=== PATIENT | female | born 1945 | race Caucasian/White ===

== ENCOUNTER 2016-12-23 08:21 | Outpatient (CLI) | payer MEDICARE | END 2016-12-23 08:22 | disposition home or self-care (01) | DX: I48.0 Paroxysmal atrial fibrillation (principal) ==

== ENCOUNTER 2017-01-21 08:00 | Outpatient (CLI) | payer MEDICARE | END 2017-01-21 08:01 | disposition home or self-care (01) | DX: I48.0 Paroxysmal atrial fibrillation (principal) ==

== ENCOUNTER 2017-02-18 08:22 | Outpatient (CLI) | payer MEDICARE | END 2017-02-18 08:23 | disposition home or self-care (01) | DX: I48.0 Paroxysmal atrial fibrillation (principal) ==

== ENCOUNTER 2017-03-18 10:16 | Outpatient (CLI) | payer MEDICARE | END 2017-03-18 10:17 | disposition home or self-care (01) | DX: I48.0 Paroxysmal atrial fibrillation (principal) ==

== ENCOUNTER 2017-04-15 10:21 | Outpatient (CLI) | payer MEDICARE | END 2017-04-15 10:22 | disposition home or self-care (01) | DX: I48.0 Paroxysmal atrial fibrillation (principal) ==

== ENCOUNTER 2017-05-13 10:02 | Outpatient (CLI) | payer MEDICARE | END 2017-05-13 10:03 | disposition home or self-care (01) | LOC: LAB.F 10:02 | PROVIDERS: ATTEND Internal Medicine Cardiovascular Disease | DX: I48.0 Paroxysmal atrial fibrillation (principal) | CPT/HCPCS: 85610 ==

== ENCOUNTER 2017-05-25 07:49 | Outpatient (CLI) | payer MEDICARE | END 2017-05-25 07:50 | disposition home or self-care (01) | LOC: LAB.F 07:49 | PROVIDERS: ATTEND Internal Medicine Cardiovascular Disease | DX: I48.0 Paroxysmal atrial fibrillation (principal) | CPT/HCPCS: 85610 ==

== ENCOUNTER 2017-05-28 08:05 | Outpatient (CLI) | payer MEDICARE | END 2017-05-28 08:06 | disposition home or self-care (01) | LOC: LAB.F 08:05 | PROVIDERS: ATTEND Internal Medicine Cardiovascular Disease | DX: I48.0 Paroxysmal atrial fibrillation (principal) | CPT/HCPCS: 85610 ==

== ENCOUNTER 2017-06-17 10:07 | Outpatient (CLI) | payer MEDICARE | END 2017-06-17 10:08 | disposition home or self-care (01) | LOC: LAB.F 10:07 | PROVIDERS: ATTEND Internal Medicine Cardiovascular Disease | DX: I48.0 Paroxysmal atrial fibrillation (principal) | CPT/HCPCS: 85610 ==

== ENCOUNTER 2017-07-22 08:12 | Outpatient (CLI) | payer MEDICARE | END 2017-07-22 08:13 | disposition home or self-care (01) | LOC: LAB.F 08:12 | PROVIDERS: ATTEND Internal Medicine Cardiovascular Disease | DX: I48.0 Paroxysmal atrial fibrillation (principal) | CPT/HCPCS: 85610 ==

== ENCOUNTER 2017-08-03 08:17 | Outpatient (CLI) | payer MEDICARE | END 2017-08-03 08:18 | disposition home or self-care (01) | LOC: LAB.F 08:17 | PROVIDERS: ATTEND Internal Medicine Cardiovascular Disease | DX: I48.0 Paroxysmal atrial fibrillation (principal) | CPT/HCPCS: 85610 ==

== ENCOUNTER 2017-08-17 08:26 | Outpatient (CLI) | payer MEDICARE | END 2017-08-17 08:27 | disposition home or self-care (01) | LOC: LAB.F 08:26 | PROVIDERS: ATTEND Internal Medicine Cardiovascular Disease | DX: I48.0 Paroxysmal atrial fibrillation (principal) | CPT/HCPCS: 85610 ==

== ENCOUNTER 2017-09-15 08:25 | Outpatient (CLI) | payer MEDICARE | END 2017-09-15 08:26 | disposition home or self-care (01) | LOC: LAB.F 08:25 | PROVIDERS: ATTEND Internal Medicine Cardiovascular Disease | DX: I48.0 Paroxysmal atrial fibrillation (principal) | CPT/HCPCS: 85610 ==

== ENCOUNTER 2017-09-29 08:17 | Outpatient (CLI) | payer MEDICARE | END 2017-09-29 08:18 | disposition home or self-care (01) | LOC: LAB.F 08:17 | PROVIDERS: ATTEND Internal Medicine Cardiovascular Disease | DX: I48.0 Paroxysmal atrial fibrillation (principal) | CPT/HCPCS: 85610 ==

== ENCOUNTER 2017-10-29 07:45 | Outpatient (CLI) | payer MEDICARE | END 2017-10-29 07:46 | disposition home or self-care (01) | LOC: LAB.F 07:45 | PROVIDERS: ATTEND Internal Medicine Cardiovascular Disease | DX: I48.0 Paroxysmal atrial fibrillation (principal) | CPT/HCPCS: 85610 ==

== ENCOUNTER 2017-11-01 07:23 | Outpatient (CLI) | payer MEDICARE | END 2017-11-01 07:24 | disposition home or self-care (01) | LOC: LAB.F 07:23 | PROVIDERS: ATTEND Internal Medicine Cardiovascular Disease | DX: I48.0 Paroxysmal atrial fibrillation (principal) | CPT/HCPCS: 85610 ==

== ENCOUNTER 2017-11-15 07:50 | Outpatient (CLI) | payer MEDICARE | END 2017-11-15 07:51 | disposition home or self-care (01) | LOC: LAB.F 07:50 | PROVIDERS: ATTEND Internal Medicine Cardiovascular Disease | DX: I48.0 Paroxysmal atrial fibrillation (principal) | CPT/HCPCS: 85610 ==

== ENCOUNTER 2017-11-30 08:22 | Outpatient (CLI) | payer MEDICARE | END 2017-11-30 08:23 | disposition home or self-care (01) | LOC: LAB.F 08:22 | PROVIDERS: ATTEND Internal Medicine Cardiovascular Disease | DX: I48.0 Paroxysmal atrial fibrillation (principal) | CPT/HCPCS: 85610 ==

== ENCOUNTER 2017-12-28 07:57 | Outpatient (CLI) | payer MEDICARE | END 2017-12-28 07:58 | disposition home or self-care (01) | LOC: LAB.F 07:57 | PROVIDERS: ATTEND Internal Medicine Cardiovascular Disease | DX: I48.0 Paroxysmal atrial fibrillation (principal) | CPT/HCPCS: 85610 ==

== ENCOUNTER 2018-01-12 10:28 | Outpatient (CLI) | payer MEDICARE | END 2018-01-12 10:29 | disposition home or self-care (01) | LOC: LAB.F 10:28 | PROVIDERS: ATTEND Internal Medicine Cardiovascular Disease | DX: I48.0 Paroxysmal atrial fibrillation (principal) | CPT/HCPCS: 85610 ==

== ENCOUNTER 2018-02-02 08:08 | Outpatient (CLI) | payer MEDICARE | END 2018-02-02 08:09 | disposition home or self-care (01) | LOC: LAB.F 08:08 | PROVIDERS: ATTEND Internal Medicine Cardiovascular Disease | DX: I48.0 Paroxysmal atrial fibrillation (principal) | CPT/HCPCS: 85610 ==

== ENCOUNTER 2018-03-04 08:40 | Outpatient (CLI) | payer MEDICARE | END 2018-03-04 08:41 | disposition home or self-care (01) | LOC: LAB.F 08:40 | PROVIDERS: ATTEND Internal Medicine | DX: I48.0 Paroxysmal atrial fibrillation (principal) | CPT/HCPCS: 85610 ==

== ENCOUNTER 2018-04-08 08:20 | Outpatient (CLI) | payer MEDICARE | END 2018-04-08 08:21 | disposition home or self-care (01) | LOC: LAB.F 08:20 | PROVIDERS: ATTEND Internal Medicine | DX: I48.0 Paroxysmal atrial fibrillation (principal) | CPT/HCPCS: 85610 ==

== ENCOUNTER 2018-05-13 10:52 | Outpatient (CLI) | payer MEDICARE | END 2018-05-13 10:53 | disposition home or self-care (01) | LOC: LAB.F 10:52 | PROVIDERS: ATTEND Internal Medicine | DX: I48.0 Paroxysmal atrial fibrillation (principal) | CPT/HCPCS: 85610 ==

== ENCOUNTER 2018-06-17 07:41 | Outpatient (CLI) | payer MEDICARE | END 2018-06-17 07:42 | disposition home or self-care (01) | LOC: LAB.F 07:41 | PROVIDERS: ATTEND Internal Medicine | DX: I48.0 Paroxysmal atrial fibrillation (principal) | CPT/HCPCS: 85610 ==

== ENCOUNTER 2018-07-25 08:10 | Outpatient (CLI) | payer MEDICARE | END 2018-07-25 08:11 | disposition home or self-care (01) | LOC: LAB.F 08:10 | PROVIDERS: ATTEND Internal Medicine | DX: I48.0 Paroxysmal atrial fibrillation (principal) | CPT/HCPCS: 85610 ==

== ENCOUNTER 2018-08-31 07:57 | Outpatient (CLI) | payer MEDICARE | END 2018-08-31 07:58 | disposition home or self-care (01) | LOC: LAB.F 07:57 | PROVIDERS: ATTEND Internal Medicine | DX: I48.0 Paroxysmal atrial fibrillation (principal) | CPT/HCPCS: 85610 ==

== ENCOUNTER 2018-10-04 13:53 | Outpatient (CLI) | payer MEDICARE | END 2018-10-04 13:54 | disposition home or self-care (01) | LOC: LAB.F 13:53 | PROVIDERS: ATTEND Internal Medicine | DX: I48.0 Paroxysmal atrial fibrillation (principal) | CPT/HCPCS: 85610 ==

== ENCOUNTER 2018-10-24 07:48 | Outpatient (CLI) | payer MEDICARE | END 2018-10-24 07:49 | disposition home or self-care (01) | LOC: LAB.F 07:48 | PROVIDERS: ATTEND Internal Medicine | DX: I48.0 Paroxysmal atrial fibrillation (principal) | CPT/HCPCS: 85610 ==

== ENCOUNTER 2018-11-14 08:02 | Outpatient (CLI) | payer MEDICARE | END 2018-11-14 08:03 | disposition home or self-care (01) | LOC: LAB.F 08:02 | PROVIDERS: ATTEND Internal Medicine | DX: I48.0 Paroxysmal atrial fibrillation (principal) | CPT/HCPCS: 85610 ==

== ENCOUNTER 2018-12-12 08:00 | Outpatient (CLI) | payer MEDICARE | END 2018-12-12 08:01 | disposition home or self-care (01) | LOC: LAB.F 08:00 | PROVIDERS: ATTEND Internal Medicine | DX: I48.0 Paroxysmal atrial fibrillation (principal) | CPT/HCPCS: 85610 ==

== ENCOUNTER 2019-01-16 08:10 | Outpatient (CLI) | payer MEDICARE | END 2019-01-16 08:11 | disposition home or self-care (01) | LOC: LAB.F 08:10 | PROVIDERS: ATTEND Internal Medicine | DX: I48.0 Paroxysmal atrial fibrillation (principal) | CPT/HCPCS: 85610 ==

== ENCOUNTER 2019-02-28 12:11 | Outpatient (CLI) | payer MEDICARE | END 2019-02-28 23:59 | disposition home or self-care (01) | LOC: LAB.F 12:11 | PROVIDERS: ATTEND Internal Medicine | DX: I48.0 Paroxysmal atrial fibrillation (principal) | CPT/HCPCS: 85610 ==

== ENCOUNTER 2019-04-11 08:08 | Outpatient (CLI) | payer MEDICARE | END 2019-04-11 08:09 | disposition home or self-care (01) | LOC: LAB.F 08:08 | PROVIDERS: ATTEND Internal Medicine | DX: I48.0 Paroxysmal atrial fibrillation (principal) | CPT/HCPCS: 85610 ==

== ENCOUNTER 2019-05-23 08:13 | Outpatient (CLI) | payer MEDICARE | END 2019-05-23 08:14 | disposition home or self-care (01) | LOC: LAB.F 08:13 | PROVIDERS: ATTEND Internal Medicine | DX: I48.0 Paroxysmal atrial fibrillation (principal) | CPT/HCPCS: 85610 ==

== ENCOUNTER 2019-07-04 08:13 | Outpatient (CLI) | payer MEDICARE | END 2019-07-04 08:14 | disposition home or self-care (01) | LOC: LAB.S 08:13 | PROVIDERS: ATTEND Internal Medicine | DX: I48.0 Paroxysmal atrial fibrillation (principal) | CPT/HCPCS: 85610 ==

== ENCOUNTER 2019-08-15 12:00 | Outpatient (CLI) | payer MEDICARE | END 2019-08-15 12:01 | disposition home or self-care (01) | LOC: LAB.S 12:00 | PROVIDERS: ATTEND Internal Medicine | DX: I48.0 Paroxysmal atrial fibrillation (principal) | CPT/HCPCS: 85610 ==

== ENCOUNTER 2019-09-26 10:26 | Outpatient (CLI) | payer MEDICARE | END 2019-09-26 10:27 | disposition home or self-care (01) | LOC: LAB.S 10:26 | PROVIDERS: ATTEND Internal Medicine | DX: I48.0 Paroxysmal atrial fibrillation (principal) | CPT/HCPCS: 85610 ==

== ENCOUNTER 2019-10-24 13:21 | Outpatient (CLI) | payer MEDICARE | END 2019-10-24 13:22 | disposition home or self-care (01) | LOC: LAB.S 13:21 | PROVIDERS: ATTEND Internal Medicine | DX: I48.0 Paroxysmal atrial fibrillation (principal) | CPT/HCPCS: 85610 ==

== ENCOUNTER 2019-12-06 10:28 | Outpatient (CLI) | payer MEDICARE | END 2019-12-06 10:29 | disposition home or self-care (01) | LOC: LAB.S 10:28 | PROVIDERS: ATTEND Internal Medicine | DX: I48.0 Paroxysmal atrial fibrillation (principal) | CPT/HCPCS: 85610 ==

== ENCOUNTER 2020-01-17 11:44 | Outpatient (CLI) | payer MEDICARE | END 2020-01-17 11:45 | disposition home or self-care (01) | LOC: LAB.S 11:44 | PROVIDERS: ATTEND Internal Medicine | DX: I48.0 Paroxysmal atrial fibrillation (principal) | CPT/HCPCS: 85610 ==

== ENCOUNTER 2020-03-06 12:52 | Outpatient (CLI) | payer MEDICARE | END 2020-03-06 12:53 | disposition home or self-care (01) | LOC: LAB 12:52 | PROVIDERS: ATTEND Internal Medicine | DX: I48.0 Paroxysmal atrial fibrillation (principal) | CPT/HCPCS: 85610 ==

== ENCOUNTER 2020-03-26 12:14 | Outpatient (CLI) | payer MEDICARE | END 2020-03-26 12:15 | disposition home or self-care (01) | LOC: LAB 12:14 | PROVIDERS: ATTEND Internal Medicine | DX: I48.0 Paroxysmal atrial fibrillation (principal) | CPT/HCPCS: 85610 ==

== ENCOUNTER 2020-05-13 11:07 | Outpatient (CLI) | payer MEDICARE | END 2020-05-13 11:08 | disposition home or self-care (01) | LOC: LAB.S 11:07 | PROVIDERS: ATTEND Internal Medicine | DX: I48.0 Paroxysmal atrial fibrillation (principal) | CPT/HCPCS: 85610 ==

== ENCOUNTER 2020-08-05 09:12 | Outpatient (CLI) | payer MEDICARE | END 2020-08-05 09:13 | disposition home or self-care (01) | LOC: LAB.S 09:12 | PROVIDERS: ATTEND Internal Medicine | DX: I48.0 Paroxysmal atrial fibrillation (principal) | CPT/HCPCS: 85610 ==

== ENCOUNTER 2020-09-17 11:27 | Outpatient (CLI) | payer MEDICARE | END 2020-09-17 11:28 | disposition home or self-care (01) | LOC: LAB.S 11:27 | PROVIDERS: ATTEND Internal Medicine | DX: I48.0 Paroxysmal atrial fibrillation (principal) | CPT/HCPCS: 85610 ==

== ENCOUNTER 2020-10-01 16:42 | Outpatient (CLI) | payer MEDICARE | END 2020-10-01 16:43 | disposition home or self-care (01) | LOC: COV 16:42 | PROVIDERS: ATTEND Family Medicine | DX: R06.02 Shortness of breath (principal); R53.83 Other fatigue; Z20.828 Contact with and (suspected) exposure to other viral communicable diseases ==

== ENCOUNTER 2020-10-03 19:04 | Emergency (ER) | payer MEDICARE ==
--- NOTE | 2020-10-03 19:23 | ED Physician Documentation ---
History of Present Illness - Stated complaint Stated Complaint: ABNORMAL LABS - Chief complaint Chief Complaint: General - History obtained from History obtained from: Patient - History of Present Illness Timing: How many weeks ago (4) Pain level max: 0 Pain level now: 0 Improved by: no ameliorating factors Worsened by: no exacerbating factors - Additonal information Additional information: patient was seen at walk-in clinic earlier today for dyspnea x 1 month; she describes the dyspnea as ongoing sensation "like I can't take a deep breath". Denies chest pain, denies leg swelling. has had mild, nonproductive cough occasionally over past 1-2 weeks. She had a cxr, ekg, and blood tests performed but was called this evening and told she had an elevated d-dimer and advised to come to ED for CT scan. patient is on warfarin for atrial fibrillation. Review of Systems Constitutional: denies: Fever, Chills, Sweats Cardiac: reports: Reviewed and negative Respiratory: reports: Dyspnea, Cough. denies: Hemoptysis, Wheezing GI: reports: Reviewed and negative Musculoskeletal: denies: Extremity swelling PD PAST MEDICAL HISTORY - Past Medical History Past Medical History: Yes Cardiovascular: Atrial fibrillation - Allergies Allergies/Adverse Reactions: Allergies Allergy/AdvReac Type Severity Reaction Status Date / Time MAGGIE Inhibitors AdvReac Respiratory Verified 10/03/20 19:20 - Living Situation Living Arrangement: reports: At home PD ED PE NORMAL - Vitals Vital signs reviewed: Yes - General General: Alert and oriented X 3, No acute distress, Well developed/nourished - Cardiac Cardiac: RRR, No murmur - Respiratory Respiratory: No respiratory distress, Clear bilaterally - Extremities Extremities: No edema Results - Vitals Vitals: Vital Signs - 24 hr 10/03/20 10/03/20 10/03/20 19:13 19:33 19:59 Temperature 36.4 C L Heart Rate 59 L 65 Respiratory 18 17 16 Rate Blood Pressure 169/54 H 153/60 H O2 Saturation 100 100 10/03/20 10/03/20 10/03/20 21:22 21:25 21:26 Temperature Heart Rate 64 Respiratory 16 17 17 Rate Blood Pressure O2 Saturation 100 10/03/20 21:52 Temperature Heart Rate Respiratory 16 Rate Blood Pressure O2 Saturation Oxygen O2 Source Room air - Labs Labs: Laboratory Tests 10/03/20 10/03/20 19:40 19:40 WBC 7.7 RBC 4.28 Hgb 13.3 Hct 40.1 MCV 93.7 MCH 31.1 H MCHC 33.2 RDW 13.8 Plt Count 165 MPV 10.9 H Neut # (Auto) 3.6 Lymph # (Auto) 3.3 Collin # (Auto) 0.5 Eos # (Auto) 0.3 Baso # (Auto) 0.0 Absolute Nucleated RBC 0.00 Nucleated RBC % 0.0 Sodium 143 Potassium 3.1 L Chloride 105 Carbon Dioxide 23 Anion Gap 15.0 H BUN 33 H Creatinine 1.4 H Estimated GFR (MDRD) 37 L Glucose 172 H Calcium 9.3 PD MEDICAL DECISION MAKING - ED course Complexity details: reviewed results, re-evaluated patient, considered differential, d/w patient ED course: IV established and CT angio chest ordered. Unfortunately, when saline was flushed through the IV (as patient was on CT table; saline was flushed to ensure patency of the IV), the saline infiltrated into the surrounding tissue, indicating the IV was no longer usable. Two more attempts were made to establish an IV and these were unsuccessful. Patient requested discharge at this point. I discussed with her the options, including having a different nurse attempt an IV, but she declines this and again requests discharge. I did raise the possibility of placing a central line but I felt the risks of putting in a central line in this patient on warfarin with stable vital signs and vague symptoms that have been presents for several weeks were greater than the potential benefit. Patient agreed with this and thus CT not performed. She will return immediately if symptoms worsen, and will f/u with PMD for reevaluation. Patient was pleasant and polite during her ED stay and our discussions regarding her care and testing. Departure - Departure Disposition: 01 Home, Self Care Clinical Impression: Dyspnea Qualifiers: Dyspnea type: unspecified Qualified Code(s): R06.00 - Dyspnea, unspecified Condition: Good Instructions: ED Dyspnea Shortness of Breath Follow-Up: Aden Minor MD [Primary Care Provider] - Discharge Date/Time: 10/03/20 21:53
[2020-10-03 19:34] VITALS: BP 153/60
[2020-10-03] MEDS ORDERED: IOVERSOL 320 100 ML VIAL IVP ONE (19:50)
[2020-10-03 19:55] LABS: BASOPHILS % (AUTO) 0.4 %; EOSINOPHILS # (AUTO) 0.3 10^3/uL (0.0-0.7); EOSINOPHILS % (AUTO) 4.4 %; HGB - HEMOGLOBIN 13.3 g/dL (12.0-16.0); LYMPHOCYTES # (AUTO) 3.3 10^3/uL (1.5-3.5); LYMPHOCYTES % (AUTO) 42.6 %; MEAN CORPUSCULAR HEMOGLOBIN 31.1 pg (27.0-31.0); MEAN CORPUSCULAR HGB CONC 33.2 g/dL (32.0-36.0); MEAN CORPUSCULAR VOLUME 93.7 fL (81.0-99.0); MEAN PLATELET VOLUME 10.9 fL (7.9-10.8); MONOCYTES # (AUTO) 0.5 10^3/uL (0.0-1.0); MONOCYTES % (AUTO) 6.2 %; NEUTROPHILS # (AUTO) 3.6 10^3/uL (1.5-6.6); NEUTROPHILS % (AUTO) 46.1 %; PLT - PLATELET COUNT 165 10^3/uL (130-450); RED BLOOD COUNT 4.28 10^6/uL (4.20-5.40); RED CELL DISTRIBUTION WIDTH 13.8 % (12.0-15.0); WHITE BLOOD COUNT 7.7 x10^3/uL (4.8-10.8)
[2020-10-03 20:35] LABS: CREATININE 1.4 mg/dL (0.4-1.0)
[2020-10-03 20:40] LABS: CALCIUM 9.3 mg/dL (8.5-10.3)
== END 2020-10-03 21:53 | disposition home or self-care (01) ==
LOC: ED 19:04
DX: R06.00 Dyspnea, unspecified (principal); R05 Cough; I48.91 Unspecified atrial fibrillation; Z79.01 Long term (current) use of anticoagulants
CPT/HCPCS: 36415; 80048; 85025; 99283

== ENCOUNTER 2020-11-12 09:20 | Outpatient (CLI) | payer MEDICARE | END 2020-11-12 09:21 | disposition home or self-care (01) | LOC: LAB.S 09:20 | PROVIDERS: ATTEND Internal Medicine | DX: I48.0 Paroxysmal atrial fibrillation (principal) | CPT/HCPCS: 85610 ==

== ENCOUNTER 2021-01-07 13:52 | Outpatient (CLI) | payer MEDICARE | END 2021-01-07 13:53 | disposition home or self-care (01) | LOC: LAB.S 13:52 | PROVIDERS: ATTEND Internal Medicine | DX: I48.0 Paroxysmal atrial fibrillation (principal) | CPT/HCPCS: 85610 ==

== ENCOUNTER 2021-01-21 12:30 | Outpatient (CLI) | payer MEDICARE | END 2021-01-21 12:31 | disposition home or self-care (01) | LOC: LAB.S 12:30 | PROVIDERS: ATTEND Internal Medicine | DX: I48.0 Paroxysmal atrial fibrillation (principal) | CPT/HCPCS: 85610 ==

== ENCOUNTER 2021-03-18 12:01 | Outpatient (CLI) | payer MEDICARE | END 2021-03-18 12:02 | disposition home or self-care (01) | LOC: LAB.S 12:01 | PROVIDERS: ATTEND Internal Medicine | DX: I48.0 Paroxysmal atrial fibrillation (principal) | CPT/HCPCS: 85610 ==

== ENCOUNTER 2021-05-06 14:11 | Outpatient (CLI) | payer MEDICARE | END 2021-05-06 14:12 | disposition home or self-care (01) | LOC: LAB.S 14:11 | PROVIDERS: ATTEND Internal Medicine | DX: I48.0 Paroxysmal atrial fibrillation (principal) | CPT/HCPCS: 36416; 85610 ==

== ENCOUNTER 2021-05-19 09:43 | Outpatient (CLI) | payer MEDICARE | END 2021-05-19 09:44 | disposition home or self-care (01) | LOC: LAB.S 09:43 | PROVIDERS: ATTEND Internal Medicine | DX: I48.0 Paroxysmal atrial fibrillation (principal) | CPT/HCPCS: 36416; 85610 ==

== ENCOUNTER 2021-07-14 11:45 | Outpatient (CLI) | payer MEDICARE | END 2021-07-14 11:46 | disposition home or self-care (01) | LOC: LAB.S 11:45 | PROVIDERS: ATTEND Internal Medicine | DX: I48.0 Paroxysmal atrial fibrillation (principal) | CPT/HCPCS: 36416; 85610 ==

== ENCOUNTER 2021-07-28 12:32 | Outpatient (CLI) | payer MEDICARE | END 2021-07-28 12:33 | disposition home or self-care (01) | LOC: LAB.S 12:32 | PROVIDERS: ATTEND Internal Medicine | DX: I48.0 Paroxysmal atrial fibrillation (principal) | CPT/HCPCS: 36416; 85610 ==

== ENCOUNTER 2021-08-11 13:18 | Outpatient (CLI) | payer MEDICARE | END 2021-08-11 13:19 | disposition home or self-care (01) | LOC: LAB.S 13:18 | PROVIDERS: ATTEND Internal Medicine | DX: I48.0 Paroxysmal atrial fibrillation (principal) | CPT/HCPCS: 36416; 85610 ==

== ENCOUNTER 2021-08-27 09:05 | Outpatient (CLI) | payer MEDICARE | END 2021-08-27 09:06 | disposition home or self-care (01) | LOC: LAB.S 09:05 | PROVIDERS: ATTEND Internal Medicine | DX: I48.0 Paroxysmal atrial fibrillation (principal) | CPT/HCPCS: 36416; 85610 ==

== ENCOUNTER 2021-09-29 12:45 | Outpatient (CLI) | payer MEDICARE | END 2021-09-29 12:46 | disposition home or self-care (01) | LOC: LAB.S 12:45 | PROVIDERS: ATTEND Internal Medicine | DX: I48.0 Paroxysmal atrial fibrillation (principal) | CPT/HCPCS: 36416; 85610 ==

== ENCOUNTER 2021-10-27 12:32 | Outpatient (CLI) | payer MEDICARE | END 2021-10-27 12:33 | disposition home or self-care (01) | LOC: LAB.S 12:32 | PROVIDERS: ATTEND Internal Medicine | DX: I48.0 Paroxysmal atrial fibrillation (principal) | CPT/HCPCS: 36416; 85610 ==

== ENCOUNTER 2021-11-26 12:14 | Outpatient (CLI) | payer MEDICARE | END 2021-11-26 12:15 | disposition home or self-care (01) | LOC: LAB.S 12:14 | PROVIDERS: ATTEND Internal Medicine | DX: I48.0 Paroxysmal atrial fibrillation (principal) | CPT/HCPCS: 36416; 85610 ==

== ENCOUNTER 2021-12-10 11:58 | Outpatient (CLI) | payer MEDICARE | END 2021-12-10 11:59 | disposition home or self-care (01) | LOC: LAB.S 11:58 | PROVIDERS: ATTEND Internal Medicine | DX: I48.0 Paroxysmal atrial fibrillation (principal) | CPT/HCPCS: 36416; 85610 ==

== ENCOUNTER 2022-01-07 08:18 | Outpatient (CLI) | payer MEDICARE | END 2022-01-07 08:19 | disposition home or self-care (01) | LOC: LAB.S 08:18 | PROVIDERS: ATTEND Internal Medicine | DX: I48.0 Paroxysmal atrial fibrillation (principal) | CPT/HCPCS: 36416; 85610 ==

== ENCOUNTER 2022-02-03 09:14 | Outpatient (CLI) | payer MEDICARE | END 2022-02-03 09:15 | disposition home or self-care (01) | LOC: LAB.S 09:14 | PROVIDERS: ATTEND Internal Medicine | DX: I48.0 Paroxysmal atrial fibrillation (principal) | CPT/HCPCS: 36416; 85610 ==

== ENCOUNTER 2022-03-03 12:47 | Outpatient (CLI) | payer MEDICARE | END 2022-03-03 12:48 | disposition home or self-care (01) | LOC: LAB.S 12:47 | PROVIDERS: ATTEND Internal Medicine | DX: I48.0 Paroxysmal atrial fibrillation (principal) | CPT/HCPCS: 36416; 85610 ==

== ENCOUNTER 2022-03-20 10:41 | Outpatient (CLI) | payer MEDICARE | END 2022-03-20 10:42 | disposition home or self-care (01) | LOC: LAB.S 10:41 | PROVIDERS: ATTEND Internal Medicine | DX: I48.0 Paroxysmal atrial fibrillation (principal) | CPT/HCPCS: 36416; 85610 ==

== ENCOUNTER 2022-04-16 10:47 | Outpatient (CLI) | payer MEDICARE | END 2022-04-16 10:48 | disposition home or self-care (01) | LOC: LAB.S 10:47 | PROVIDERS: ATTEND Internal Medicine | DX: I48.0 Paroxysmal atrial fibrillation (principal) | CPT/HCPCS: 36416; 85610 ==

== ENCOUNTER 2022-05-20 08:25 | Outpatient (CLI) | payer MEDICARE | END 2022-05-20 08:26 | disposition home or self-care (01) | LOC: LAB.S 08:25 | PROVIDERS: ATTEND Internal Medicine | DX: I48.0 Paroxysmal atrial fibrillation (principal) | CPT/HCPCS: 36416; 85610 ==

== ENCOUNTER 2022-07-01 09:45 | Outpatient (CLI) | payer MEDICARE ==
[2022-07-01 15:20] LABS: ALBUMIN 3.5 g/dL (3.2-5.5); CALCIUM 9.1 mg/dL (8.5-10.3); CREATININE 1.3 mg/dL (0.4-1.0); PHOSPHORUS 2.7 mg/dL (2.5-4.6); POTASSIUM 3.6 mmol/L (3.5-5.0)
== END 2022-07-01 09:46 | disposition home or self-care (01) ==
LOC: LAB.S 09:45
PROVIDERS: ATTEND Internal Medicine
DX: I48.0 Paroxysmal atrial fibrillation (principal); N18.31 Chronic kidney disease, stage 3a
CPT/HCPCS: 36415; 36416; 80069; 85610

== ENCOUNTER 2022-08-27 10:26 | Outpatient (CLI) | payer MEDICARE | END 2022-08-27 10:27 | disposition home or self-care (01) | LOC: LAB.S 10:26 | PROVIDERS: ATTEND Internal Medicine | DX: I48.0 Paroxysmal atrial fibrillation (principal) | CPT/HCPCS: 36416; 85610 ==

== ENCOUNTER 2022-10-08 10:44 | Outpatient (CLI) | payer MEDICARE | END 2022-10-08 10:45 | disposition home or self-care (01) | LOC: LAB.S 10:44 | PROVIDERS: ATTEND Internal Medicine | DX: I48.0 Paroxysmal atrial fibrillation (principal) | CPT/HCPCS: 36416; 85610 ==

== ENCOUNTER 2022-10-26 11:10 | Outpatient (CLI) | payer MEDICARE | END 2022-10-26 11:11 | disposition home or self-care (01) | LOC: LAB.S 11:10 | PROVIDERS: ATTEND Internal Medicine | DX: I48.0 Paroxysmal atrial fibrillation (principal) | CPT/HCPCS: 36416; 85610 ==

== ENCOUNTER 2022-11-11 09:38 | Outpatient (CLI) | payer MEDICARE | END 2022-11-11 09:39 | disposition home or self-care (01) | LOC: LAB.S 09:38 | PROVIDERS: ATTEND Internal Medicine | DX: I48.0 Paroxysmal atrial fibrillation (principal) | CPT/HCPCS: 36416; 85610 ==

== ENCOUNTER 2022-11-26 13:17 | Outpatient (CLI) | payer MEDICARE | END 2022-11-26 13:18 | disposition home or self-care (01) | LOC: LAB.S 13:17 | PROVIDERS: ATTEND Internal Medicine | DX: I48.0 Paroxysmal atrial fibrillation (principal) | CPT/HCPCS: 36416; 85610 ==

== ENCOUNTER 2023-01-15 11:22 | Outpatient (CLI) | payer MEDICARE | END 2023-01-15 11:23 | disposition home or self-care (01) | LOC: LAB.S 11:22 | PROVIDERS: ATTEND Internal Medicine | DX: I48.0 Paroxysmal atrial fibrillation (principal) | CPT/HCPCS: 36416; 85610 ==

== ENCOUNTER 2023-02-12 10:45 | Outpatient (CLI) | payer MEDICARE ==
[2023-02-12 14:39] LABS: BASOPHILS % (AUTO) 0.5 %; BILIRUBIN,URINE NEGATIVE (NEGATIVE); EOSINOPHILS # (AUTO) 0.3 10^3/uL (0.0-0.7); EOSINOPHILS % (AUTO) 4.8 %; GLUCOSE, URINE (UA) NEGATIVE (NEGATIVE); HCT - HEMATOCRIT 37.7 % (37.0-47.0); HGB - HEMOGLOBIN 12.4 g/dL (12.0-16.0); KETONES,URINE (UA) NEGATIVE (NEGATIVE); LEUKOCYTE ESTERASE, URINE NEGATIVE (NEGATIVE); LYMPHOCYTES # (AUTO) 2.6 10^3/uL (1.5-3.5); LYMPHOCYTES % (AUTO) 38.7 %; MEAN CORPUSCULAR HEMOGLOBIN 31.2 pg (27.0-31.0); MEAN CORPUSCULAR HGB CONC 32.9 g/dL (32.0-36.0); MEAN CORPUSCULAR VOLUME 94.7 fL (81.0-99.0); MONOCYTES # (AUTO) 0.5 10^3/uL (0.0-1.0); MONOCYTES % (AUTO) 7.1 %; NEUTROPHILS # (AUTO) 3.3 10^3/uL (1.5-6.6); NEUTROPHILS % (AUTO) 48.7 %; NITRITE,URINE NEGATIVE (NEGATIVE); OCCULT BLOOD,URINE MODERATE (NEGATIVE); PH,URINE 5.5 PH (5.0-7.5); PLT - PLATELET COUNT 171 10^3/uL (130-450); PROTEIN,URINE TRACE mg/dL (NEGATIVE); RED BLOOD COUNT 3.98 10^6/uL (4.20-5.40); RED CELL DISTRIBUTION WIDTH 14.5 % (12.0-15.0); UROBILINOGEN,URINE 0.2 (NORMAL) E.U./dL (NORMAL); WHITE BLOOD COUNT 6.7 x10^3/uL (4.8-10.8)
[2023-02-12 14:45] LABS: BACTERIA,URINE Many /HPF (None Seen); CLARITY,URINE SL. CLOUDY (CLEAR); MUCUS,URINE Few Strands; RBC,URINE 0-5 /HPF (0-5); SQUAMOUS EPITHELIAL CELL,UR RARE Squamous (<= Few); WBC,URINE 0-3 /HPF (0-5)
[2023-02-12 14:55] LABS: CREATININE,URINE 177.4 mg/dL; MICROALBUMIN,URINE 18.1 mg/dL (0-300.0); PROTEIN/CREATININE RATIO,URINE 0.2 (<=0.2)
[2023-02-12 15:10] LABS: ALBUMIN 3.7 g/dL (3.2-5.5); CREATININE 1.5 mg/dL (0.4-1.0); PHOSPHORUS 3.1 mg/dL (2.5-4.6); POTASSIUM 3.6 mmol/L (3.5-5.0)
[2023-02-12 16:04] LABS: FOLATE 14.85 ng/mL (5.90 - >24.8)
== END 2023-02-12 10:46 | disposition home or self-care (01) ==
LOC: LAB.S 10:45
PROVIDERS: ATTEND Internal Medicine
DX: I48.0 Paroxysmal atrial fibrillation (principal); N18.32 Chronic kidney disease, stage 3b
CPT/HCPCS: 36415; 80069; 81001; 81003; 82043; 82306; 82570; 82607; 82746; 83540; 83970; 84156; 84466; 85025; 85610; 87086

== ENCOUNTER 2023-02-16 11:20 | Outpatient (CLI) | payer MEDICARE | END 2023-02-16 11:21 | disposition home or self-care (01) | LOC: LAB.S 11:20 | PROVIDERS: ATTEND Internal Medicine Nephrology | DX: N18.32 Chronic kidney disease, stage 3b (principal) | CPT/HCPCS: 36415; 82728 ==

== ENCOUNTER 2023-03-12 11:35 | Outpatient (CLI) | payer MEDICARE | END 2023-03-12 11:36 | disposition home or self-care (01) | LOC: LAB.S 11:35 | PROVIDERS: ATTEND Internal Medicine | DX: I48.0 Paroxysmal atrial fibrillation (principal) | CPT/HCPCS: 36416; 85610 ==

== ENCOUNTER 2023-05-07 11:23 | Outpatient (CLI) | payer MEDICARE | END 2023-05-07 11:24 | disposition home or self-care (01) | LOC: LAB.S 11:23 | PROVIDERS: ATTEND Internal Medicine | DX: I48.0 Paroxysmal atrial fibrillation (principal) | CPT/HCPCS: 36416; 85610 ==

== ENCOUNTER 2023-06-11 10:52 | Outpatient (CLI) | payer MEDICARE | END 2023-06-11 10:53 | disposition home or self-care (01) | LOC: LAB.S 10:52 | PROVIDERS: ATTEND Internal Medicine | DX: I48.0 Paroxysmal atrial fibrillation (principal) | CPT/HCPCS: 36416; 85610 ==

== ENCOUNTER 2023-07-16 13:26 | Outpatient (CLI) | payer MEDICARE | END 2023-07-16 13:27 | disposition home or self-care (01) | LOC: LAB.S 13:26 | PROVIDERS: ATTEND Internal Medicine | DX: I48.0 Paroxysmal atrial fibrillation (principal) | CPT/HCPCS: 36416; 85610 ==

== ENCOUNTER 2023-09-03 11:57 | Outpatient (CLI) | payer MEDICARE | END 2023-09-03 11:58 | disposition home or self-care (01) | LOC: LAB.S 11:57 | PROVIDERS: ATTEND Internal Medicine | DX: I48.0 Paroxysmal atrial fibrillation (principal) | CPT/HCPCS: 36416; 85610 ==

== ENCOUNTER 2023-09-09 14:27 | Emergency (ER) | payer MEDICARE ==
[2023-09-09] MEDS ORDERED: hydrALAZINE INJ 20 MG/ML VIAL IVP STA (14:45)
--- NOTE | 2023-09-09 14:49 | ED Physician Documentation ---
History of Present Illness - Stated complaint Stated Complaint: HIGH BP - Chief complaint Chief Complaint: Cardiac - History obtained from History obtained from: Patient - Additonal information Additional information: 78-year-old woman with CKD, A-fib on warfarin and hypertension presents for the evaluation of elevated blood pressure. She is been feeling generally ill the last few days with nausea loose stools and diarrhea. And a couple of days ago her jackscrew man changed her from nifedipine to felodipine. She is still on losartan and atenolol. She noticed her blood pressure went up to 160 over something yesterday and was 200 over something. No chest pain or trouble breathing. PD PAST MEDICAL HISTORY - Past Medical History Past Medical History: Yes Cardiovascular: Atrial fibrillation Respiratory: None Neuro: None Endocrine/Autoimmune: HyPOthyroidism GI: GERD [employer]SEM[employer]ER: None : None HEENT: None Psych: Depression Musculoskeletal: None Derm: None - Past Surgical History Past Surgical History: Yes /[employer]ER: section, Hysterectomy HEENT: Tonsil/Adenoidectomy - Present Medications Home Medications: Ambulatory Orders Medication Instructions Recorded Confirmed Atorvastatin [Lipitor] 20 mg PO DAILY 09/09/23 09/09/23 Felodipine [Felodipine ER] 1 tab PO DAILY 09/09/23 09/09/23 Fluoxetine HCl [Prozac] 20 mg PO DAILY 09/09/23 09/09/23 Levothyroxine [Synthroid] 88 mcg PO QDAC 09/09/23 09/09/23 Losartan [Cozaar] 100 mg PO DAILY 09/09/23 09/09/23 NIFEdipine [Nifedipine ER] 60 mg PO BID #60 tab 09/09/23 Warfarin [Coumadin] 5 mg PO DAILY 09/09/23 09/09/23 atenoloL [Tenormin] 25 mg PO DAILY 09/09/23 09/09/23 - Allergies Allergies/Adverse Reactions: Allergies Allergy/AdvReac Type Severity Reaction Status Date / Time MAGGIE Inhibitors AdvReac Respiratory Verified 09/09/23 14:42 - Social History Does the pt smoke?: Yes Smoking Status: Current every day smoker Does the pt drink ETOH?: Yes Does the pt have substance abuse?: No - Immunizations Immunizations are current?: Yes - POLST Patient has POLST: No PD ED PE NORMAL - Vitals Vital signs reviewed: Yes - General General: Alert and oriented X 3, No acute distress - Cardiac Cardiac: Other (Irregularly irregular without murmur) - Respiratory Respiratory: No respiratory distress, Clear bilaterally - Abdomen Abdomen: Non tender (No) - Back Back: No CVA TTP, No spinal TTP - Derm Derm: Normal color, Warm and dry - Extremities Extremities: No edema, No calf tenderness / cord - Neuro Neuro: Alert and oriented X 3, Normal speech Results - Vitals Vitals: Vital Signs - 24 hr 09/09/23 09/09/23 09/09/23 14:37 15:16 15:54 Temperature 36.5 C Heart Rate 56 L 47 L 54 L Respiratory 20 16 14 Rate Blood Pressure 209/63 H 184/58 H 175/56 H O2 Saturation 99 100 99 Oxygen O2 Source Room air - EKG (time done) 1447 EKG releavant findings:: EKG personally interpreted by author of this note. Relevant findings are: Rate: Rate (enter#) (45) Rhythm: Sinus bradycardia [place]: Normal Intervals: Normal [place] QRS: Normal Ischemia: Non specific changes. No: ST elevation c/w ischemia - Labs Labs: Laboratory Tests 09/09/23 09/09/23 15:00 15:00 PT 32.3 H INR 3.2 H Sodium 141 Potassium 4.1 Chloride 109 Carbon Dioxide 25 Anion Gap 7.0 BUN 32 H Creatinine 1.3 Estimated GFR (MDRD) 40 L Glucose 91 Calcium 9.6 PD Medical Decision Making - ED course ED course: 78-year-old woman who has history of CKD and hypertension presents with [id number] hypertension the setting of a diarrheal illness with benign exam. No symptoms or signs suggestive of endorgan damage related to hypertension. BMP was normal with mild CKD GFR 40 and her INR was supratherapeutic at 3.2. She received 1 dose of IV hydralazine with improvement of her blood pressure down to the 180/80 range. Spoke with her nephro, Dr Barbara Magana at 1559. She changed her from Nifedipine to felodipine for the side effect of pedal edema and does recommend switching her back to nifedipine and she confirmed her dose was 60 mg long-acting twice a day. Departure - Departure Disposition: 01 Home, Self Care Clinical Impression: Supratherapeutic INR Hypertension Qualifiers: Hypertension type: unspecified Qualified Code(s): I10 - Essential (primary) hypertension Condition: Good Record reviewed to determine appropriate education?: Yes Prescriptions: NIFEdipine [Nifedipine ER] 60 mg PO BID #60 tab Comments: You were seen today for blood pressure [id number] related to mostly a recent dose change, potentially related to having some diarrhea and flushing through your meds as well. I confirmed with your jackscrew man that she changed you from nifedipine to felodipine for the side effect of edema/swelling of your lower extremities and given that your blood pressures are high she agrees with switching you back to the nifedipine at a dose of 60 mg of long-acting twice a day. This is in addition to your other blood pressure medications, losartan and atenolol which should be continued. Your INR was slightly high today at 3.2. Take a half dose of your Coumadin/warfarin at the next dose. Return if worse. You should see your jackscrew man within the next month for recheck. Forms: PCP List
[2023-09-09 15:43] LABS: INR 3.2 (0.8-1.2); PT - PROTHROMBIN TIME 32.3 secs (9.9-12.6)
[2023-09-09 15:52] LABS: CALCIUM 9.6 mg/dL (8.5-10.3); CREATININE 1.3 mg/dL (0.6-1.3); POTASSIUM 4.1 mmol/L (3.5-4.5)
[2023-09-09 16:01] VITALS: BP 175/56; O2SAT 99
[2023-09-09] MEDS ORDERED: NIFEdipine ER 30 MG TABLET PO STA (16:02)
== END 2023-09-09 16:28 | disposition home or self-care (01) ==
LOC: ED 14:27
DX: I12.9 Hypertensive chronic kidney disease with stage 1 through stage 4 chronic kidney disease, or unspecified chronic kidney disease (principal); R79.1 Abnormal coagulation profile; I48.91 Unspecified atrial fibrillation; Z79.01 Long term (current) use of anticoagulants; N18.9 Chronic kidney disease, unspecified; F17.200 Nicotine dependence, unspecified, uncomplicated
CPT/HCPCS: 36415; 80048; 85610; 93005; 96374; 99284; A9270

== ENCOUNTER 2023-09-30 08:40 | Outpatient (CLI) | payer MEDICARE | END 2023-09-30 08:41 | disposition home or self-care (01) | LOC: LAB.S 08:40 | PROVIDERS: ATTEND Internal Medicine | DX: I48.0 Paroxysmal atrial fibrillation (principal) | CPT/HCPCS: 36416; 85610 ==

== ENCOUNTER 2023-12-09 08:38 | Outpatient (CLI) | payer MEDICARE | END 2023-12-09 08:39 | disposition home or self-care (01) | LOC: LAB.S 08:38 | PROVIDERS: ATTEND Internal Medicine | DX: I48.0 Paroxysmal atrial fibrillation (principal) | CPT/HCPCS: 36416; 85610 ==

== ENCOUNTER 2024-01-20 08:49 | Outpatient (CLI) | payer MEDICARE | END 2024-01-20 08:50 | disposition home or self-care (01) | LOC: LAB.S 08:49 | PROVIDERS: ATTEND Internal Medicine | DX: I48.0 Paroxysmal atrial fibrillation (principal) | CPT/HCPCS: 36416; 85610 ==

== ENCOUNTER 2024-03-02 11:01 | Outpatient (CLI) | payer MEDICARE | END 2024-03-02 11:02 | disposition home or self-care (01) | LOC: LAB.S 11:01 | PROVIDERS: ATTEND Internal Medicine | DX: I48.0 Paroxysmal atrial fibrillation (principal) | CPT/HCPCS: 36416; 85610 ==

== ENCOUNTER 2024-04-13 09:07 | Outpatient (CLI) | payer MEDICARE | END 2024-04-13 09:08 | disposition home or self-care (01) | LOC: LAB.S 09:07 | PROVIDERS: ATTEND Internal Medicine | DX: I48.0 Paroxysmal atrial fibrillation (principal) | CPT/HCPCS: 36416; 85610 ==

== ENCOUNTER 2024-05-26 07:41 | Outpatient (CLI) | payer MEDICARE | END 2024-05-26 07:42 | disposition home or self-care (01) | LOC: LAB.S 07:41 | PROVIDERS: ATTEND Internal Medicine | DX: I48.0 Paroxysmal atrial fibrillation (principal) | CPT/HCPCS: 36416; 85610 ==

== ENCOUNTER 2024-06-09 07:53 | Outpatient (CLI) | payer MEDICARE | END 2024-06-09 07:54 | disposition home or self-care (01) | LOC: LAB.S 07:53 | PROVIDERS: ATTEND Internal Medicine | DX: I48.0 Paroxysmal atrial fibrillation (principal) | CPT/HCPCS: 36416; 85610 ==

== ENCOUNTER 2024-07-10 07:38 | Outpatient (CLI) | payer MEDICARE | END 2024-07-10 07:39 | disposition home or self-care (01) | LOC: LAB.S 07:38 | PROVIDERS: ATTEND Internal Medicine | DX: I48.0 Paroxysmal atrial fibrillation (principal) | CPT/HCPCS: 85610 ==

== ENCOUNTER 2024-08-23 07:26 | Outpatient (CLI) | payer MEDICARE | END 2024-08-23 07:27 | disposition home or self-care (01) | LOC: LAB.S 07:26 | PROVIDERS: ATTEND Internal Medicine | DX: I48.0 Paroxysmal atrial fibrillation (principal) | CPT/HCPCS: 36416; 85610 ==